=== PATIENT | female | born 1965 ===

== ENCOUNTER 2017-09-16 15:18 | Inpatient (IN) | payer MEDICAID ==
[2017-09-16] MEDS: KETAMINE HCL 500 MG/5 ML VIAL ONE ×2 (08:10→20:00)
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
[2017-09-16] MEDS ORDERED: NS(*) 0.9% 1000 ML BAG 1,000 ML IV ONE ×2 (15:29→18:27)
[2017-09-16] MEDS ORDERED: FOSPHENYTOIN(*) 500 MG/10 ML V 500 MG in NS(*) 0.9% 100 ML BAG 100 ML IVPB ONE (15:30)
[2017-09-16] MEDS ORDERED: ONDANSETRON 4 MG/2 ML VIAL IVP ONE (15:30)
[2017-09-16 16:46] LABS: PLATELET COUNT, AUTOMATED 278 K/uL (150-450)
--- NOTE | 2017-09-16 18:56 | EKG ---
FACILITY: [facility] [place] PATIENT NAME: ROMMEL PEÑA : [id number] MR: [id number] V: [id number] EXAM DATE: ORDERING PHYSICIAN: RO VALLADARES TECHNOLOGIST: YVETTE Test Reason : SEIZURE Blood Pressure : / mmHG Vent. Rate : 083 BPM Atrial Rate : 083 BPM P-R Int : 156 ms QRS Dur : 080 ms QT Int : 354 ms P-R-T Axes : 078 080 080 degrees QTc Int : 415 ms Normal sinus rhythm Nonspecific ST and T wave abnormality Abnormal ECG No previous ECGs available Confirmed by LEBRON SPENCER ([id number]) on 09/17/2017 12:34:55 AM Referred By: BRIDGETTE Confirmed By:LEBRON SPENCER
--- NOTE | 2017-09-16 19:06 | RADIOLOGY IMAGING REPORT ---
FACILITY: [facility] [place] PATIENT NAME: Kym Oates : 1965 MR: [id number] V: [id number] EXAM DATE: ORDERING PHYSICIAN: MELVIN ANGELES TECHNOLOGIST: Location: [facility] Patient: Kym Oates : 1965 Visit/Account:[id number] Date of Sevice: 09/16/2017 EXAMINATION: CT HEAD WITHOUT CONTRAST COMPARISON: None available HISTORY: Seizure. PROCEDURE: Noncontrast CT from the vertex through the skull base. One of the following dose optimizat ion techniques was utilized in the performance of this exam: Automated exposure control; adjustment o f the mA and/or kV according to the patient's size; or use of an iterative reconstruction technique. Specific details can be referenced in the facility's radiology CT exam operational policy. FINDINGS: Brain volume: Age-appropriate volume. Hemorrhage/extra-axial fluid: No intracranial hemorrhage or extra-axial fluid collection. Mass effect/midline shift/edema: None. Ischemia: Minimal chronic appearing white matter change. No acute snell-white differentiation loss. Ventricles and basal cisterns: Ventricle size is within normal limits. Basal cisterns are open. Posterior fossa: Negative. Vessels: Negative. Calvarium, skull base, and scalp: Negative. Visualized sinuses and orbits: Visualized paranasal sinuses are clear. Visualized globes are unremark able. IMPRESSION: 1. No intracranial hemorrhage or mass effect. 2. No CT findings of acute ischemia. Report Dictated By: Karthik Cornell MD at 09/16/2017 6:56 PM Report E-Signed By: Karthik Cornell MD at 09/16/2017 7:03 PM WSN:[id number]
--- NOTE | 2017-09-16 19:09 | RADIOLOGY IMAGING REPORT ---
[place] [facility] [place] NAME: Kym Oates : 1965 MR: [id number] V: [id number] EXAM DATE: ORDERING PHYSICIAN: MELVIN ANGELES TECHNOLOGIST: Location: [facility] [place] Patient: Kym Oates : 1965 Visit/Account:[id number] Date of Sevice: 09/16/2017 Examination: CHEST SINGLE AP Comparison: None. History: Fever. Findings: No consolidation or nodule. No pneumothorax, edema, or effusion. Cardiac and hilar contour size is within normal limits. Osseous structures are intact. IMPRESSION: No evidence of acute cardiopulmonary disease. Report Dictated By: Karthik Cornell MD at 09/16/2017 7:03 PM Report E-Signed By: Karthik Cornell MD at 09/16/2017 7:05 PM WSN:[id number]
[2017-09-16] MEDS ORDERED: LORazepam 2 MG/ML VIAL ONE (19:14)
[2017-09-16] MEDS ORDERED: [UNRECOGNIZED DRUG - OTHER] IVPB ONE (19:25)
[2017-09-16] MEDS ORDERED: FOSPHENYTOIN IVPB ONE (19:25)
[2017-09-16] MEDS ORDERED: NS 0.9% IVPB ONE (19:25)
[2017-09-16] MEDS ORDERED: cefTRIAXone 2 GM VIAL IVP ONE (19:30)
[2017-09-16] MEDS ORDERED: KETAMINE HCL 200 MG/20 ML MDV IVP ONE (19:30)
[2017-09-16] MEDS ORDERED: ACETAMINOPHEN 325 MG SUPP PR ONE (23:30)
[2017-09-16 23:51] VITALS: BP 137/85
[2017-09-17] MEDS ORDERED: INFLUENZA VIRUS VAC 0.5 ML SYR IM ONLY ONE (00:05)
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
[2017-09-17] MEDS: NS(*) 0.9% 1000 ML BAG 1,000 ML IV PRN ×2 (01:03→13:02)
[2017-09-17 03:48] VITALS: BP 129/82
[2017-09-17] MEDS: ACETAMINOPHEN(*)1000 MG/100 ML 100 ML IVPB PRN (03:55)
[2017-09-17 07:10] VITALS: BP 118/73
[2017-09-17 07:42] LABS: PLATELET COUNT, AUTOMATED 251 K/uL (150-450)
[2017-09-17] MEDS: FOSPHENYTOIN IVPB SCH ×2 (09:50→20:33)
[2017-09-17] MEDS: NS 0.9% IVPB SCH ×2 (09:50→20:33)
[2017-09-17] MEDS: [UNRECOGNIZED DRUG - OTHER] IVPB SCH ×2 (09:50→20:33)
[2017-09-17 11:05] VITALS: BP 130/89
[2017-09-17 16:23] VITALS: BP 128/82
[2017-09-17 19:04] VITALS: BP 141/76
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
[2017-09-17] MEDS: cefTRIAXone 2 GM VIAL IVP SCH (22:03)
[2017-09-17 23:14] VITALS: BP 144/86
[2017-09-18 04:15] VITALS: BP 157/85
[2017-09-18] MEDS: ACETAMINOPHEN(*)1000 MG/100 ML 100 ML IVPB PRN (04:20)
[2017-09-18] MEDS: NS(*) 0.9% 1000 ML BAG 1,000 ML IV PRN (04:20)
[2017-09-18 06:30] LABS: PLATELET COUNT, AUTOMATED 258 K/uL (150-450)
[2017-09-18] MEDS ORDERED: KCL (*) 20 MEQ/100 ML PREMIX 100 ML IV SCH (07:10)
[2017-09-18 07:11] VITALS: BP 153/86
[2017-09-18] MEDS: FOSPHENYTOIN IVPB SCH ×2 (09:28→21:17)
[2017-09-18] MEDS: NS 0.9% IVPB SCH ×2 (09:28→21:17)
[2017-09-18] MEDS: [UNRECOGNIZED DRUG - OTHER] IVPB SCH ×2 (09:28→21:17)
[2017-09-18 11:45] VITALS: BP 141/91
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
[2017-09-18] MEDS ORDERED: POTASSIUM CHL 10 MEQ TABCR PO ONE (14:30)
[2017-09-18] MEDS ORDERED: LOPERAMIDE HCL 2 MG CAP PO ONE (14:30)
[2017-09-18] MEDS ORDERED: MAGNESIUM SUL* 2 GM/50 ML IVPB 50 ML IVPB ONE (14:30)
[2017-09-18] MEDS ORDERED: KCL (*) 20 MEQ/100 ML PREMIX 100 ML IV ONE (15:30)
[2017-09-18 15:49] VITALS: BP 153/92
[2017-09-18 19:07] VITALS: BP 164/92
--- NOTE | 2017-09-18 20:03 | RADIOLOGY IMAGING REPORT ---
FACILITY: [facility] PATIENT NAME: ROMMEL CASEY : [id number] MR: [id number] V: [id number] EXAM DATE: ORDERING PHYSICIAN: LEBRON SPENCER TECHNOLOGIST: Narinder Mcclain EXAMINATION:TWO-DIMENSIONAL ECHOCARDIOGRAPH REASON:FEVER AND HEART MURMUR. 2D Measurements (normal values in centimeters) LV endLV endRV endVent.LV PostAorticLeftPercent DiastolicSystolicDiastolicSeptumWallRootAtriumShortening (3.5-5.7)(0.9-2.6)(0.6-1.1)(0.6-1.1)(2.0-3.7)(1.9-4.0)(25-35%) [id number]% STROKE VOLUME: 65 mL ESTIMATED EJECTION FRACTION:74% PARASTERNAL LONG AXIS: Overall left ventricular systolic function is normal. No wall motion abnormalities are noted. Aortic valve and mitral valve both appear to open normally. Color examination of the valves reveals a trace of mitral insufficiency present. Color examination of the aortic valve was unremarkable. PARASTERNAL SHORT AXIS: Overall left ventricular function is normal and chamber sizes are normal. The aortic valve is trileaflet in configuration and appears to open normally. No obvious vegetations are noted. Color examination of the pulmonic valve reveals a trace of pulmonic insufficiency. Color examination of the aortic valve was unremarkable. APICAL FOUR AND TWO CHAMBER: Normal left ventricular ejection fraction and normal chamber sizes. No obvious vegetations are noted in any of the valves. Color examination of the tricuspid valve revealed a trace of tricuspid insufficiency. Color examination of the mitral valve reveals a trace to mild amount of mitral insufficiency present. Aortic valve area and mitral valve area both measure within normal range at 2.7 and 3.1 cm2 respectively. Left atrial volume and right atrial volume measure within normal range at 22.6 and 11.0 ml/m2. Right ventricular function appears to be normal with a TAPSE of 1.9. SUBCOSTAL VIEW: No pericardial effusion was noted. No atrial septal or ventricular septal defects were appreciated. Doppler examination of the mitral valve in diastole is normal. IVC is normal in size. Tricuspid regurgitation V-max is measured at 2.43 m/sec. OVERALL IMPRESSION: 1. Essentially normal 2-dimensional echocardiograph. Normal left ventricular systolic and diastolic function. No wall motion abnormalities are noted. The chamber sizes are also normal. 2. A trace of mitral, tricuspid and pulmonic insufficiency with estimated right ventricular systolic pressure within normal ranges at 27 mmHg which does include an estimated right atrial pressure of 3 mmHg. The aortic valve was trileaflet in configuration and appears to open normally. 3. No obvious vegetations are noted in any of the valves. Dictated by: Stephan Arriola M.D. on 09/17/2017 at 21:07 Transcribed by: KINGS on 09/18/2017 at 14:55 Approved by: Stephan Arriola M.D. on 09/18/2017 at 20:01 [facility]
[2017-09-18] MEDS: ACETAMINOPHEN 325 MG TAB PO PRN (21:05)
[2017-09-18] MEDS: cefTRIAXone 2 GM VIAL IVP SCH (22:27)
[2017-09-18 22:29] VITALS: BP 151/92
[2017-09-19 03:28] VITALS: BP 159/97
[2017-09-19] MEDS: NS(*) 0.9% 1000 ML BAG 1,000 ML IV PRN ×2 (04:29→15:51)
[2017-09-19 07:08] VITALS: BP 162/111
[2017-09-19] MEDS: NS 0.9% IVPB SCH (08:44)
[2017-09-19] MEDS: [UNRECOGNIZED DRUG - OTHER] IVPB SCH (08:44)
[2017-09-19] MEDS: FOSPHENYTOIN IVPB SCH (08:44)
[2017-09-19 10:56] VITALS: BP 156/104
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
[2017-09-19 15:14] VITALS: BP 168/98
[2017-09-19] MEDS: POTASSIUM CHL 10 MEQ TABCR PO SCH (17:10)
[2017-09-19 19:33] VITALS: BP 154/99
[2017-09-19] MEDS: PHENYTOIN ER 100 MG CAPER PO SCH (21:39)
[2017-09-19] MEDS: cefTRIAXone 2 GM VIAL IVP SCH (21:40)
[2017-09-19] MEDS: ACETAMINOPHEN 325 MG TAB PO PRN (22:23)
[2017-09-19 23:19] VITALS: BP 170/100
[2017-09-20] VITALS (10 sets, daily range): BP systolic 147–182; BP diastolic 100–128
[2017-09-20] MEDS: NS(*) 0.9% 1000 ML BAG 1,000 ML IV PRN (02:09)
[2017-09-20] MEDS: LOPERAMIDE HCL 2 MG CAP PO PRN ×4 (02:59→10:52)
[2017-09-20] MEDS: ACETAMINOPHEN 325 MG TAB PO PRN ×4 (04:12→23:29)
[2017-09-20 06:17] LABS: PLATELET COUNT, AUTOMATED 257 K/uL (150-450)
[2017-09-20] MEDS: POTASSIUM CHL 10 MEQ TABCR PO SCH ×2 (08:34→17:24)
[2017-09-20] MEDS: LISINOPRIL 10 MG TAB PO SCH (09:51)
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
[2017-09-20] MEDS ORDERED: PRAMIPEXOLE DIHYDROCHL 0.25 MG PO ONE (15:20)
[2017-09-20] MEDS: CAPSAICIN 60 GM TUBE TP PRN (18:34)
[2017-09-20] MEDS: PHENYTOIN ER 100 MG CAPER PO SCH (20:20)
[2017-09-21 04:18] VITALS: BP 181/129
[2017-09-21 04:20] VITALS: BP 180/110
[2017-09-21] MEDS: ACETAMINOPHEN 325 MG TAB PO PRN ×4 (05:34→23:58)
[2017-09-21] MEDS: LOPERAMIDE HCL 2 MG CAP PO PRN ×2 (06:32→07:23)
[2017-09-21 07:18] VITALS: BP 179/113
[2017-09-21] MEDS: POTASSIUM CHL 10 MEQ TABCR PO SCH ×2 (08:22→17:07)
[2017-09-21] MEDS: LISINOPRIL 10 MG TAB PO SCH (08:22)
[2017-09-21 11:31] VITALS: BP 151/117
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
[2017-09-21 15:00] VITALS: BP 152/92
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
[2017-09-21] MEDS: amLODIPine BESYL(*) 5 MG TAB PO SCH (17:07)
[2017-09-21 19:30] VITALS: BP 155/116
[2017-09-21] MEDS: PHENYTOIN ER 100 MG CAPER PO SCH (20:24)
[2017-09-21] MEDS: GABAPENTIN 100 MG CAP PO SCH (20:24)
[2017-09-22] MEDS: LOPERAMIDE HCL 2 MG CAP PO PRN ×2 (02:43→08:31)
[2017-09-22 02:44] VITALS: BP 158/106
[2017-09-22 07:23] VITALS: BP 155/102
[2017-09-22] MEDS: GABAPENTIN 100 MG CAP PO SCH ×2 (08:23→21:38)
[2017-09-22] MEDS: amLODIPine BESYL(*) 5 MG TAB PO SCH (08:23)
[2017-09-22] MEDS: LISINOPRIL 10 MG TAB PO SCH (08:23)
[2017-09-22] MEDS: ACETAMINOPHEN 325 MG TAB PO PRN ×2 (08:23→21:38)
[2017-09-22] MEDS: POTASSIUM CHL 10 MEQ TABCR PO SCH (08:23)
[2017-09-22 12:24] VITALS: BP 149/97
[2017-09-22] MEDS: traMADol 50 MG TAB PO PRN ×2 (12:29→21:38)
--- NOTE | 2017-09-22 15:36 | Hospitalist Progress Note ---
Subjective Progress Notes Subjective The patient complains of pain. Physical Exam Vital Signs Date Time Temp Pulse Resp B/P (MAP) Pulse Ox O2 Delivery O2 Flow Rate FiO2 09/22/17 12:24 98.5 86 16 149/97 (114) 95 Room Air 09/21/17 14:45 Intake and Output 09/23/17 07:01 Intake Total 120 ml Balance 120 ml Intake Oral 120 ml # Voids 2 # Bowel Movements 1 General Appearance: Alert, Awake, No Acute Distress Neuro: No Gross deficits Eyes: PERRLA Cardiovascular: Regular Rate and Rhythm Respiratory: Clear to Auscultation GI: Soft and Non-Tender Extremities: Warm, Perfused Psych: Appropriate Mood & Affect Result Diagram: 09/20/1752309/20/17523 Assessment and Plan Problems: (1) Grand mal seizure Status: Acute Assessment & Plan: She did have two witnessed seizures in the emergency department. 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 She also takes methadone and Klonopin through a pain clinic and has not been taking either of these for at least several days. This makes either a withdrawal seizure or an underlying seizure disorder as possible etiologies. She supposedly had been off her chronic medications for an extended time frame but did test positive for opiates and cocaine in the ER prior to admission. She admits to using cocaine prior to traveling to [place]. The potential problems with her chronic pain medication and benzodiazepines were discussed. Now that she has been "detoxified", it may be worthwhile to keep her off any of these medications. We will continue the Dilantin. (2) Altered mental status Status: Acute Assessment & Plan: She has not had further seizure and is more alert and awake each day. The person with her reported that her baseline mental status is that of a 11 year old because of previous seizures. We are awaiting a discharge disposition. Today the patient states she has not had previous issue with seizure disorder and agrees her recent seizures were likely due to withdrawal. (3) Fever Status: Acute Assessment & Plan: She presented with a fever and elevated WBC, but no localizing site of infection. A lumbar puncture was performed in the emergency department. The fluid analysis did not appear to be consistent with meningitis and culture is negative. An echocardiogram shows no evidence of vegetations. Blood cultures are negative to date. She was on empiric treatment with ceftriaxone, but this has been discontinued. (4) Hypokalemia Status: Acute Assessment & Plan: This has been improving with potassium supplementation. (5) Diarrhea Status: Acute Assessment & Plan: Possibly secondary to narcotic withdrawal. Stool studies have been negative. (6) Polysubstance abuse Status: Chronic Assessment & Plan: Her urine was positive for cocaine and opiates. She was taking methadone prescribed through a pain clinic, but this was reportedly stolen at least one week ago. Her drug screen in ER was positive for opiates and cocaine however and she now admits to using cocaine prior to traveling to [place]. (7) Lactic acidosis Status: Resolved Assessment & Plan: This may have been secondary to the seizures. (8) HTN (hypertension) Status: Chronic Assessment & Plan: She has been started on lisinopril. (9) Chronic pain Status: Chronic Assessment & Plan: The patient is now complaining of pain. She initially denied pain when questioned until just a few days ago when her mental status improved. She is requesting methadone. Dr. Alegria has recommended keeping her off of opiates and methadone and treating any pain with Tramadol and gabapentin. She does have history of seizure but this now seems to be related to withdrawal. She continues to deny seizure disorder and states the Klonopin was prescribed for RLS. Will try Tramadol and gabapentin. Of note, the patient was monitored for several minutes prior to entering her room and was lying in bed with her hands folded. She did not move and appeared quite comfortable until I entered the room. She then began complaining of pain and writhing. She requested methadone and I explained that we were not going to prescribe methadone as she had been off of it for some time. Time Spent on Plan of Care: < 30 min Exam Sepsis Risk: No Definite Risk Problem Qualifiers (1) Altered mental status: Altered mental status type: disorientation Qualified Codes: R41.0 - Disorientation, unspecified (2) Fever: Fever type: unspecified Qualified Codes: R50.9 - Fever, unspecified KIARA HOUGH MD Sep 22, 2017 15:36
[2017-09-22 15:43] VITALS: BP 149/105
[2017-09-22] MEDS: POTASSIUM CHL PWDR 20 MEQ PKT PO SCH (17:22)
[2017-09-22 19:52] VITALS: BP 147/102
[2017-09-22] MEDS: PHENYTOIN ER 100 MG CAPER PO SCH (21:38)
[2017-09-23 06:21] LABS: PLATELET COUNT, AUTOMATED 332 K/uL (150-450)
[2017-09-23 07:44] VITALS: BP 140/89
[2017-09-23] MEDS: LISINOPRIL 10 MG TAB PO SCH (08:47)
[2017-09-23] MEDS: amLODIPine BESYL(*) 5 MG TAB PO SCH (08:47)
[2017-09-23] MEDS: traMADol 50 MG TAB PO PRN ×3 (08:47→22:27)
[2017-09-23] MEDS: GABAPENTIN 100 MG CAP PO SCH ×2 (08:47→20:56)
--- NOTE | 2017-09-23 09:54 | Hospitalist Progress Note ---
Subjective Progress Notes Subjective She reports soem pain in legs. She appears comfortable when alone in room, but then complains and appears agitated when we enter. Physical Exam Vital Signs Date Time Temp Pulse Resp B/P (MAP) Pulse Ox O2 Delivery O2 Flow Rate FiO2 09/23/17 07:46 Room Air 09/23/17 07:44 98.5 92 16 140/89 (106) 96 09/21/17 14:45 Intake and Output 09/24/17 07:01 Intake Total 0 ml Balance 0 ml Intake Oral 0 ml General Appearance: Alert, Awake Cardiovascular: Regular Rate and Rhythm Respiratory: Clear to Auscultation GI: Soft and Non-Tender Extremities: Warm, Perfused Result Diagram: 09/23/1760909/23/17609 Assessment and Plan Problems: (1) Grand mal seizure Status: Acute Assessment & Plan: She did have two witnessed seizures in the emergency department. 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 She also takes methadone and Klonopin through a pain clinic and has not been taking either of these for at least several days. This makes either a withdrawal seizure or an underlying seizure disorder as possible etiologies. She supposedly had been off her chronic medications for an extended time frame but did test positive for opiates and cocaine in the ER prior to admission. She admits to using cocaine prior to traveling to [place]. The potential problems with her chronic pain medication and benzodiazepines were discussed. Now that she has been "detoxified", it may be worthwhile to keep her off any of these medications. We will continue the Dilantin. (2) Altered mental status Status: Acute Assessment & Plan: She has not had further seizure and is more alert and awake each day. The person with her reported that her baseline mental status is that of a 11 year old because of previous seizures. We are awaiting a discharge disposition. The patient states she has not had previous issue with seizure disorder and agrees her recent seizures were likely due to withdrawal. (3) Fever Status: Acute Assessment & Plan: She presented with a fever and elevated WBC, but no localizing site of infection. A lumbar puncture was performed in the emergency department. The fluid analysis did not appear to be consistent with meningitis and culture is negative. An echocardiogram shows no evidence of vegetations. Blood cultures are negative to date. She was on empiric treatment with ceftriaxone, but this has been discontinued. (4) Hypokalemia Status: Acute Assessment & Plan: This has been improving with potassium supplementation. (5) Diarrhea Status: Acute Assessment & Plan: Possibly secondary to narcotic withdrawal. Stool studies have been negative. (6) Polysubstance abuse Status: Chronic Assessment & Plan: Her urine was positive for cocaine and opiates. She was taking methadone prescribed through a pain clinic, but this was reportedly stolen at least one week ago. Her drug screen in ER was positive for opiates and cocaine. (7) Lactic acidosis Status: Resolved Assessment & Plan: This may have been secondary to the seizures. (8) HTN (hypertension) Status: Chronic Assessment & Plan: She has been started on lisinopril. (9) Chronic pain Status: Chronic Assessment & Plan: The patient is now complaining of pain. She initially denied pain when questioned until just a few days ago when her mental status improved. She is requesting methadone. Dr. Alegria has recommended keeping her off of opiates and methadone and treating any pain with Tramadol and gabapentin. She does have history of seizure, but this now seems to be related to withdrawal. She continues to deny seizure disorder and states the Klonopin was prescribed for RLS. Will continue Tramadol and gabapentin. Of note, the patient was monitored for several minutes prior to entering her room and was lying in bed with her hands folded. She did not move and appeared quite comfortable until we entered the room. She then began complaining of pain and writhing. She has requested methadone and we have explained that we were not going to prescribe methadone. Exam Sepsis Risk: No Definite Risk Problem Qualifiers (1) Altered mental status: Altered mental status type: disorientation Qualified Codes: R41.0 - Disorientation, unspecified (2) Fever: Fever type: unspecified Qualified Codes: R50.9 - Fever, unspecified JAVIER HOUGH MD Sep 23, 2017 09:54
[2017-09-23 11:55] VITALS: BP 134/97
[2017-09-23] MEDS: POTASSIUM CHL PWDR 20 MEQ PKT PO SCH (15:58)
[2017-09-23 19:43] VITALS: BP 133/107
[2017-09-23 19:46] VITALS: BP 137/97
[2017-09-23] MEDS: ACETAMINOPHEN 325 MG TAB PO PRN (19:53)
[2017-09-23] MEDS: PHENYTOIN ER 100 MG CAPER PO SCH (20:56)
[2017-09-24] MEDS: traMADol 50 MG TAB PO PRN ×3 (04:36→17:48)
[2017-09-24 04:37] VITALS: BP 97/85
[2017-09-24 06:14] LABS: PLATELET COUNT, AUTOMATED 368 K/uL (150-450)
[2017-09-24] MEDS: LISINOPRIL 10 MG TAB PO SCH ×2 (08:43→08:57)
[2017-09-24] MEDS: ACETAMINOPHEN 325 MG TAB PO PRN ×3 (08:43→21:45)
[2017-09-24] MEDS: GABAPENTIN 100 MG CAP PO SCH ×2 (08:43→20:19)
[2017-09-24] MEDS: amLODIPine BESYL(*) 5 MG TAB PO SCH (08:44)
[2017-09-24 08:46] VITALS: BP 133/97
--- NOTE | 2017-09-24 08:46 | Medical Nutrition Therapy ---
Nutrition Anthropometrics Weight (Pounds): 109 Weight (Calculated Kilograms): 49.442 Kirk Nutrition Score: Probably Inadequate Kirk Nutrition Risk Score: 18 Dietary Referral Nutrition Risk Factors: Nutrition Risk Comment: Nutritional Diagnosis Nutritional Risk Acuity 2: V/D > 3 Days, Pr Appetite > 3d Nutritional Risk Acuity 3: Substance abuse Past Medical History: Polysubstance abuse, seizures Nutritional Acuity: 2-Moderate Nutrition Diagnosis: Inadequate Food Intake, Altered GI Function Nutrition Etiology: Physiological Causes Nutrition Problem/Etiology/Sym: Poor appetite with diarrhea r/t substance abuse withdrawls per H&P AEB intake 2-25%. Energy Requirement: 1500 (1gm/kg) Protein Requirement: 50 (1gm/kg) Fluid Requirement: 1500 (30ml/kg) Diet Type: Diet as Tolerated ALEX/REG Nutrition Intervention: Cont diet as ordered, Between meal supplement Additional Diet Restrictions: OFFER NUTR SUPPLEMENT Nutrition Monitoring & Eval Nutrition Goals: Eat 75-100% Meal Nutrition Follow-Up: Poor Intake RD Patient Assessment Time: [address] Assessment Type: RD Assessment Patient Nutrition Acuity: 2-Moderate Follow Up Date: Sep 28, 2017 Nutritional Comment: Pt admitted for Grand mal seizure and altered mental state. Wt status unavilable d/t lack of Ht. Low Na+/K+, Total Creat Kinase 225. Receiving ALEX with no reports of intake. Follow for HT, intake, etc. 09/21 Pt cont diarrhia and "not very hungry", per hospitalist note. Intakes averaging from bites to 25% since admission on 09/16. Notable labs include Na 135, K 3.1, and alb 3.3. Will offer nutr supplement. Continue to encourage intake and monitor. 09/24 Pt cont poor intake, rangeing 0-25%. Alb has increased to 4.2. AST elevated at 65, ALT elevated at 77. Will cont to offer nutr supplment to increase kcal and protein intake. BALJINDER NEWSOME Sep 24, 2017 08:46
--- NOTE | 2017-09-24 10:37 | Hospitalist Progress Note ---
Subjective Progress Notes Subjective This patient was admitted for altered mental status and seizures. We continue to await a discharge plan. She had no acute events overnight. Patient Complains of: Cardiovascular: No: Chest Pain Respiratory: No: Shortness of Breath Physical Exam Vital Signs Date Time Temp Pulse Resp B/P (MAP) Pulse Ox O2 Delivery O2 Flow Rate FiO2 09/24/17 08:46 98.4 97 16 133/97 (109) 97 Room Air 09/21/17 14:45 Cardiovascular: Regular Rate and Rhythm Respiratory: Clear to Auscultation Result Diagram: 09/24/17 0602 09/24/17601 Assessment and Plan Problems: (1) Grand mal seizure Status: Acute Assessment & Plan: She did have two witnessed seizures in the emergency department. 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 She also takes methadone and Klonopin through a pain clinic and has not been taking either of these for at least several days. This makes either a withdrawal seizure or an underlying seizure disorder as possible etiologies. She supposedly had been off her chronic medications for an extended time frame but did test positive for opiates and cocaine in the ER prior to admission. She admits to using cocaine prior to traveling to [place]. The potential problems with her chronic pain medication and benzodiazepines were discussed. Now that she has been "detoxified", it may be worthwhile to keep her off any of these medications. We will continue the Dilantin. (2) Altered mental status Status: Acute Assessment & Plan: She has not had further seizure and is more alert and awake each day. The person with her reported that her baseline mental status is that of a 11 year old because of previous seizures. We are awaiting a discharge disposition. The patient states she has not had previous issue with seizure disorder and agrees her recent seizures were likely due to withdrawal. (3) Fever Status: Acute Assessment & Plan: She presented with a fever and elevated WBC, but no localizing site of infection. A lumbar puncture was performed in the emergency department. The fluid analysis did not appear to be consistent with meningitis and culture is negative. An echocardiogram shows no evidence of vegetations. Blood cultures are negative to date. She was on empiric treatment with ceftriaxone, but this has been discontinued. (4) Hypokalemia Status: Acute Assessment & Plan: This has been improving with potassium supplementation. (5) Diarrhea Status: Acute Assessment & Plan: Possibly secondary to narcotic withdrawal. Stool studies have been negative. (6) Polysubstance abuse Status: Chronic Assessment & Plan: Her urine was positive for cocaine and opiates. She was taking methadone prescribed through a pain clinic, but this was reportedly stolen at least one week ago. Her drug screen in ER was positive for opiates and cocaine. (7) Lactic acidosis Status: Resolved Assessment & Plan: This may have been secondary to the seizures. (8) HTN (hypertension) Status: Chronic Assessment & Plan: She has been started on lisinopril. (9) Chronic pain Status: Chronic Assessment & Plan: The patient is now complaining of pain. She initially denied pain when questioned until just a few days ago when her mental status improved. She is requesting methadone. Dr. Alegria has recommended keeping her off of opiates and methadone and treating any pain with Tramadol and gabapentin. She does have history of seizure, but this now seems to be related to withdrawal. She continues to deny seizure disorder and states the Klonopin was prescribed for RLS. Will continue Tramadol and gabapentin. Of note, the patient was monitored for several minutes prior to entering her room and was lying in bed with her hands folded. She did not move and appeared quite comfortable until we entered the room. She then began complaining of pain and writhing. She has requested methadone and we have explained that we were not going to prescribe methadone. Exam Sepsis Risk: No Definite Risk Problem Qualifiers (1) Altered mental status: Altered mental status type: disorientation Qualified Codes: R41.0 - Disorientation, unspecified (2) Fever: Fever type: unspecified Qualified Codes: R50.9 - Fever, unspecified LEBRON SPENCER DO Sep 24, 2017 10:37
[2017-09-24 11:07] VITALS: BP 123/87
[2017-09-24] MEDS ORDERED: MENTHOL/METHYL SALI CREAM 57 GM 57 GM TUBE TP PRN (14:35)
[2017-09-24 15:08] VITALS: BP 119/82
[2017-09-24] MEDS: CAPSAICIN 60 GM TUBE TP PRN (16:28)
[2017-09-24] MEDS: POTASSIUM CHL PWDR 20 MEQ PKT PO SCH (17:47)
[2017-09-24 19:32] VITALS: BP 108/72
[2017-09-24] MEDS: PHENYTOIN ER 100 MG CAPER PO SCH (20:19)
[2017-09-25] MEDS: traMADol 50 MG TAB PO PRN ×3 (00:27→14:32)
[2017-09-25 08:51] VITALS: BP 117/103
[2017-09-25] MEDS: LISINOPRIL 10 MG TAB PO SCH (08:51)
[2017-09-25] MEDS: GABAPENTIN 100 MG CAP PO SCH (08:51)
[2017-09-25] MEDS: amLODIPine BESYL(*) 5 MG TAB PO SCH (08:52)
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
[2017-09-25] MEDS ORDERED: CALCIUM CARBONATE 500 MG CHEW PO PRN (14:15)
[2017-09-25] MEDS: POTASSIUM CHL PWDR 20 MEQ PKT PO SCH (17:04)
== END 2017-09-25 17:56 | DRG 897 ==
LOC: ER 15:23 → MED 23:00
PROVIDERS: ADMIT Family Medicine; ATTEND Family Medicine
PROC: 009U3ZX Drainage of Spinal Canal, Percutaneous Approach, Diagnostic (ICD-10-PCS; principal; 2017-09-16)
DX: F11.23 Opioid dependence with withdrawal (principal); E87.2 Acidosis; G40.409 Other generalized epilepsy and epileptic syndromes, not intractable, without status epilepticus; E87.6 Hypokalemia; T40.3X6A Underdosing of methadone, initial encounter; T42.4X6A Underdosing of benzodiazepines, initial encounter; R50.9 Fever, unspecified; G89.4 Chronic pain syndrome; F02.80 Dementia in other diseases classified elsewhere, unspecified severity, without behavioral disturbance, psychotic disturbance, mood disturbance, and anxiety; F15.10 Other stimulant abuse, uncomplicated; F14.10 Cocaine abuse, uncomplicated; R19.7 Diarrhea, unspecified; I10 Essential (primary) hypertension; G25.81 Restless legs syndrome; Z85.41 Personal history of malignant neoplasm of cervix uteri; Z91.128 Patient's intentional underdosing of medication regimen for other reason; Z88.8 Allergy status to other drugs, medicaments and biological substances
CPT/HCPCS: 36415; 36600; 70450; 71010; 80185; 80305; 81001; 82040; 82140; 82247; 82310; 82374; 82435; 82550; 82565; 82803; 82945; 82947; 83605; 83630; 83735; 83874; 84075; 84132; 84155; 84157; 84295; 84450; 84460; 84520; 85025; 85651; 86140; 87040; 87045; 87070; 87205; 87324; 87449; 87502; 89050; 93005; 93306; 96365; 96366; 96375; 97161; 97165; 99285; 99291; 99292; A4353; J0131; J0696; J2060; J2405; J3475; J3480; J7030; J7050; Q2009

== ENCOUNTER → 2017-09-16 | Outpatient (CLI) | payer MEDICAID | LOC: AMB 14:56 | PROVIDERS: ATTEND Nurse Practitioner | DX: R56.9 Unspecified convulsions (principal); R41.82 Altered mental status, unspecified; E11.9 Type 2 diabetes mellitus without complications | CPT/HCPCS: A0425; A0427 ==

== ENCOUNTER 2017-09-25 17:56 | Inpatient (IN) | payer MEDICAID ==
[~2017-09-25] VITALS: Ht 165.1 cm; Wt 47.6 kg
[2017-09-25] MEDS ORDERED: GABAPENTIN 100 MG CAP PO SCH (18:08)
[2017-09-25] MEDS ORDERED: MENTHOL/METHYL SALI CREAM 57 GM 57 GM TUBE TP PRN (18:08)
[2017-09-25] MEDS ORDERED: LOPERAMIDE HCL 2 MG CAP PO PRN (18:08)
[2017-09-25] MEDS ORDERED: ACETAMINOPHEN 325 MG TAB PO PRN (18:08)
[2017-09-25] MEDS ORDERED: CALCIUM CARBONATE 500 MG CHEW CHEW PRN (18:25)
[2017-09-25] MEDS ORDERED: traMADol 50 MG TAB PO PRN (18:25)
[2017-09-25 21:27] VITALS: BP 129/85
[2017-09-25] MEDS: QUEtiapine FUM 25 MG TAB PO SCH (21:36)
[2017-09-25] MEDS: GABAPENTIN 300 MG CAP PO SCH (21:37)
[2017-09-25] MEDS: PHENYTOIN ER 100 MG CAPER PO SCH (21:37)
[2017-09-25] MEDS: PANTOPRAZOLE SOD 40 MG TABEC PO SCH (21:37)
[2017-09-26 06:06] VITALS: BP 117/83
[2017-09-26] MEDS: MAG HYD/AL HYD/SIMETH 30ML UDC PO PRN ×2 (07:54→18:01)
[2017-09-26] MEDS: CHOLECALCIFEROL 1000 UNIT TAB PO SCH (07:55)
[2017-09-26] MEDS: LISINOPRIL 20 MG TAB PO SCH (07:55)
[2017-09-26] MEDS: MULTIVITAMINS PO SCH (07:55)
[2017-09-26] MEDS: PANTOPRAZOLE SOD 40 MG TABEC PO SCH (07:55)
[2017-09-26] MEDS: THIAMINE HCL 100 MG TAB PO SCH (07:55)
[2017-09-26] MEDS: FOLIC ACID 1 MG TAB PO SCH (07:55)
[2017-09-26] MEDS: GABAPENTIN 300 MG CAP PO SCH ×3 (07:55→21:05)
[2017-09-26] MEDS: OMEGA-3 500 MG CAP PO SCH (07:57)
[2017-09-26 09:19] VITALS: BP 142/94
[2017-09-26] MEDS ORDERED: NICOTINE CARTRIDGE 1 EA PO PRN (11:05)
[2017-09-26] MEDS: NICOTINE 7 MG/24 HR PATCH TD SCH (14:08)
[2017-09-26 14:55] VITALS: BP 82/65
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
[2017-09-26] MEDS: QUEtiapine FUM 25 MG TAB PO SCH (21:05)
[2017-09-26] MEDS: PHENYTOIN ER 100 MG CAPER PO SCH (21:05)
[2017-09-27 05:44] VITALS: BP 136/94
[2017-09-27] MEDS: MAG HYD/AL HYD/SIMETH 30ML UDC PO PRN ×3 (05:46→20:10)
[2017-09-27 07:54] LABS: PLATELET COUNT, AUTOMATED 383 K/uL (150-450)
[2017-09-27] MEDS: OMEGA-3 500 MG CAP PO SCH (08:43)
[2017-09-27] MEDS: CHOLECALCIFEROL 1000 UNIT TAB PO SCH (08:43)
[2017-09-27] MEDS: GABAPENTIN 300 MG CAP PO SCH ×3 (08:43→20:37)
[2017-09-27] MEDS: FOLIC ACID 1 MG TAB PO SCH (08:43)
[2017-09-27] MEDS: PANTOPRAZOLE SOD 40 MG TABEC PO SCH (08:43)
[2017-09-27 08:44] VITALS: BP 121/75
[2017-09-27] MEDS: LISINOPRIL 20 MG TAB PO SCH (08:44)
[2017-09-27] MEDS: MULTIVITAMINS PO SCH (08:44)
[2017-09-27] MEDS: THIAMINE HCL 100 MG TAB PO SCH (08:44)
[2017-09-27] MEDS: NICOTINE 7 MG/24 HR PATCH TD SCH (08:46)
--- NOTE | 2017-09-27 11:50 | BHS Progress Note ---
BHS - Subjective Progress Notes Subjective Patient remains overall cooperative on the unit. Vague, sporadic complaints of pain, or other conditions, such as "acid reflux" continue in this patient who likely suffers from powerful addictive behaviors. Patient is taking an active role in her treatment, and continues to await her discharge into care of significant other toward the end of the week. No other complaints. Will continue current medication regimen. Suicidal Ideation: None Homicidal Ideation: None BHS - Objective Physical Exam Vital Signs Vital Signs Date Time Temp Pulse Resp B/P (MAP) Pulse Ox O2 Delivery O2 Flow Rate FiO2 09/27/17 08:44 98.1 124 121/75 (90) 96 Room Air 09/27/17 05:44 15 Hematology Test 09/27/17 07:11 Red Blood Count 4.77 M/uL (4.17-5.56) Mean Corpuscular Volume 88.9 fL (80.0-96.0) Mean Corpuscular Hemoglobin 30.6 pg (26.0-33.0) Mean Corpuscular Hemoglobin Concent 34.5 g/dL (32.0-36.0) Red Cell Distribution Width 14.3 % (11.5-14.5) Mean Platelet Volume 9.6 fL (7.2-11.1) Neutrophils (%) (Auto) 64.9 % (39.4-72.5) Lymphocytes (%) (Auto) 24.1 % (17.6-49.6) Monocytes (%) (Auto) 7.0 % (4.1-12.4) Eosinophils (%) (Auto) 1.4 % (0.4-6.7) Basophils (%) (Auto) 2.6 % (0.3-1.4) Nucleated RBC Relative Count (auto) 0.1 /100WBC Neutrophils # (Auto) 7.4 K/uL (2.0-7.4) Lymphocytes # (Auto) 2.7 K/uL (1.3-3.6) Monocytes # (Auto) 0.8 K/uL (0.3-1.0) Eosinophils # (Auto) 0.2 K/uL (0.0-0.5) Basophils # (Auto) 0.3 K/uL (0.0-0.1) Nucleated RBC Absolute Count (auto) 0.01 K/uL Sodium Level 138 mmol/L (137-145) Potassium Level 4.6 mmol/L (3.5-5.0) Chloride Level 103 mmol/L (98-107) Carbon Dioxide Level 26 mmol/L (22-31) Blood Urea Nitrogen 23 mg/dl (7-18) Creatinine 0.90 mg/dl (0.52-1.04) Glomerular Filtration Rate Calc > 60.0 Random Glucose 86 mg/dl (75-110) Calcium Level 9.8 mg/dl (8.4-10.2) Total Bilirubin 0.4 mg/dl (0.2-1.3) Aspartate Amino Transf (AST/SGOT) 182 U/L (0-35) Alanine Aminotransferase (ALT/SGPT) 264 U/L (0-56) Alkaline Phosphatase 64 U/L (0-126) Total Protein 6.9 gm/dl (6.3-8.2) Albumin 3.5 g/dl (3.5-5.0) Chemistry Test 09/27/17 07:11 White Blood Count 11.4 k/uL (4.5-11.0) Red Blood Count 4.77 M/uL (4.17-5.56) Hemoglobin 14.6 g/dL (12.0-16.0) Hematocrit 42.4 % (34.0-47.0) Mean Corpuscular Volume 88.9 fL (80.0-96.0) Mean Corpuscular Hemoglobin 30.6 pg (26.0-33.0) Mean Corpuscular Hemoglobin Concent 34.5 g/dL (32.0-36.0) Red Cell Distribution Width 14.3 % (11.5-14.5) Platelet Count 383 K/uL (150-450) Mean Platelet Volume 9.6 fL (7.2-11.1) Neutrophils (%) (Auto) 64.9 % (39.4-72.5) Lymphocytes (%) (Auto) 24.1 % (17.6-49.6) Monocytes (%) (Auto) 7.0 % (4.1-12.4) Eosinophils (%) (Auto) 1.4 % (0.4-6.7) Basophils (%) (Auto) 2.6 % (0.3-1.4) Nucleated RBC Relative Count (auto) 0.1 /100WBC Neutrophils # (Auto) 7.4 K/uL (2.0-7.4) Lymphocytes # (Auto) 2.7 K/uL (1.3-3.6) Monocytes # (Auto) 0.8 K/uL (0.3-1.0) Eosinophils # (Auto) 0.2 K/uL (0.0-0.5) Basophils # (Auto) 0.3 K/uL (0.0-0.1) Nucleated RBC Absolute Count (auto) 0.01 K/uL Glomerular Filtration Rate Calc > 60.0 Calcium Level 9.8 mg/dl (8.4-10.2) Total Bilirubin 0.4 mg/dl (0.2-1.3) Aspartate Amino Transf (AST/SGOT) 182 U/L (0-35) Alanine Aminotransferase (ALT/SGPT) 264 U/L (0-56) Alkaline Phosphatase 64 U/L (0-126) Total Protein 6.9 gm/dl (6.3-8.2) Albumin 3.5 g/dl (3.5-5.0) Hematology Test 09/27/17 07:11 Red Blood Count 4.77 M/uL (4.17-5.56) Mean Corpuscular Volume 88.9 fL (80.0-96.0) Mean Corpuscular Hemoglobin 30.6 pg (26.0-33.0) Mean Corpuscular Hemoglobin Concent 34.5 g/dL (32.0-36.0) Red Cell Distribution Width 14.3 % (11.5-14.5) Mean Platelet Volume 9.6 fL (7.2-11.1) Neutrophils (%) (Auto) 64.9 % (39.4-72.5) Lymphocytes (%) (Auto) 24.1 % (17.6-49.6) Monocytes (%) (Auto) 7.0 % (4.1-12.4) Eosinophils (%) (Auto) 1.4 % (0.4-6.7) Basophils (%) (Auto) 2.6 % (0.3-1.4) Nucleated RBC Relative Count (auto) 0.1 /100WBC Neutrophils # (Auto) 7.4 K/uL (2.0-7.4) Lymphocytes # (Auto) 2.7 K/uL (1.3-3.6) Monocytes # (Auto) 0.8 K/uL (0.3-1.0) Eosinophils # (Auto) 0.2 K/uL (0.0-0.5) Basophils # (Auto) 0.3 K/uL (0.0-0.1) Nucleated RBC Absolute Count (auto) 0.01 K/uL Sodium Level 138 mmol/L (137-145) Potassium Level 4.6 mmol/L (3.5-5.0) Chloride Level 103 mmol/L (98-107) Carbon Dioxide Level 26 mmol/L (22-31) Blood Urea Nitrogen 23 mg/dl (7-18) Creatinine 0.90 mg/dl (0.52-1.04) Glomerular Filtration Rate Calc > 60.0 Random Glucose 86 mg/dl (75-110) Calcium Level 9.8 mg/dl (8.4-10.2) Total Bilirubin 0.4 mg/dl (0.2-1.3) Aspartate Amino Transf (AST/SGOT) 182 U/L (0-35) Alanine Aminotransferase (ALT/SGPT) 264 U/L (0-56) Alkaline Phosphatase 64 U/L (0-126) Total Protein 6.9 gm/dl (6.3-8.2) Albumin 3.5 g/dl (3.5-5.0) Chemistry Test 09/27/17 07:11 White Blood Count 11.4 k/uL (4.5-11.0) Red Blood Count 4.77 M/uL (4.17-5.56) Hemoglobin 14.6 g/dL (12.0-16.0) Hematocrit 42.4 % (34.0-47.0) Mean Corpuscular Volume 88.9 fL (80.0-96.0) Mean Corpuscular Hemoglobin 30.6 pg (26.0-33.0) Mean Corpuscular Hemoglobin Concent 34.5 g/dL (32.0-36.0) Red Cell Distribution Width 14.3 % (11.5-14.5) Platelet Count 383 K/uL (150-450) Mean Platelet Volume 9.6 fL (7.2-11.1) Neutrophils (%) (Auto) 64.9 % (39.4-72.5) Lymphocytes (%) (Auto) 24.1 % (17.6-49.6) Monocytes (%) (Auto) 7.0 % (4.1-12.4) Eosinophils (%) (Auto) 1.4 % (0.4-6.7) Basophils (%) (Auto) 2.6 % (0.3-1.4) Nucleated RBC Relative Count (auto) 0.1 /100WBC Neutrophils # (Auto) 7.4 K/uL (2.0-7.4) Lymphocytes # (Auto) 2.7 K/uL (1.3-3.6) Monocytes # (Auto) 0.8 K/uL (0.3-1.0) Eosinophils # (Auto) 0.2 K/uL (0.0-0.5) Basophils # (Auto) 0.3 K/uL (0.0-0.1) Nucleated RBC Absolute Count (auto) 0.01 K/uL Glomerular Filtration Rate Calc > 60.0 Calcium Level 9.8 mg/dl (8.4-10.2) Total Bilirubin 0.4 mg/dl (0.2-1.3) Aspartate Amino Transf (AST/SGOT) 182 U/L (0-35) Alanine Aminotransferase (ALT/SGPT) 264 U/L (0-56) Alkaline Phosphatase 64 U/L (0-126) Total Protein 6.9 gm/dl (6.3-8.2) Albumin 3.5 g/dl (3.5-5.0) Muscle Strength and Tone: Other Gait and Station: Steady (some generalized weakness at times) [facility] Medications Reviewed: Side Effects, Benefits of Medication, Risks Allergies Reviewed: Yes Mental Status Exam General Appearance: Casual, Well Groomed, Good Eye Contact, Cooperative, Polite , Good Interaction, No Unkept, No Tearful, No Psychomotor Agitation, No Psychomotor Retardation, No Bizarre Mannerisms, No Tics Speech: Clear, Spontaneous, Normal Rate, Normal Rhythm, No Normal Volume, Normal Tone Mood: Euthymic Affect: Full and Appropriate, Calm, No Withdrawn, No Tearful Thought Process: Organized, Logical, Goal Directed, No Loose Associations, No Flight of Ideas Thought Content: No Suicidal Ideation, No Homicidal Ideation, No Delusions, No Auditory Halllucinations, No Visual Hallucinations, No Thought Broadcasting, No Ideas of Reference, No Obsessions, No Compulsions Sensorium: Clear Cognition: Alert & Oriented-Person, Alert & Oriented-Place, Alert & Oriented- Time, Tebye-Tnnzvbsg-Bdfquydfg Memory: Immediate, Recent, Remote Intelligence: Average Insight Judgment: Poor (likely addictive behaviors are very strong, patient cognition continues to improve. ) Result Diagram: 09/27/17 0711 09/27/17 0711 [facility] Assessment and Plan Vuyf-[id number] Encounter Date: Sep 27, 2017 [id number] Encounter Time: 11:15 [facility] Plan: Necessary Precautions, Individual/Group Therapy, Admin/Titrate Meds, Educate Patient Problems: (1) Substance-induced disorder Assessment & Plan: cognition continues to improve. (2) Stimulant use disorder Status: Chronic Assessment & Plan: likely present and chronic, patient denies. (3) Opiate dependence Status: Chronic Assessment & Plan: likely present and chronic, patient denies. Condition 1. continue treatment, and education. 2. await arrival of significant other and subsequent discharge. Problem Qualifiers (1) Opiate dependence: Substance use status: with other opioid-induced disorder Qualified Codes: F11.288 - Opioid dependence with other opioid-induced disorder ISABEL MENDIOLA MD Sep 27, 2017 11:49
--- NOTE | 2017-09-27 13:42 | Miscellaneous Provider Note ---
Miscellaneous Provider Note Note Reviewed lab work. She has had persistently elevated WBC count, which is improved on today's labs. Her AST and ALT are modestly elevated today. She has had slight elevation in the past. She is on a couple of medications that could lead to the increase (Dilantin, Neurontin, acetaminophen). At this time, would not make any specific changes (other than DC acetaminophen), but would re-check labs tomorrow to see if continuing to rise. If so, would need to consider changing her regimen. JAVIER HOUGH MD Sep 27, 2017 13:42
[2017-09-27] MEDS: QUEtiapine FUM 25 MG TAB PO SCH (20:37)
[2017-09-27] MEDS: PHENYTOIN ER 100 MG CAPER PO SCH (20:37)
[2017-09-27 21:18] VITALS: BP 125/94
[2017-09-28] MEDS ORDERED: QUEtiapine FUM 25 MG TAB PO SCH
[2017-09-28] MEDS ORDERED: LISINOPRIL 20 MG TAB PO SCH
[2017-09-28] MEDS ORDERED: PHENYTOIN ER 100 MG CAPER PO SCH ×2
[2017-09-28] MEDS ORDERED: GABAPENTIN 300 MG CAP PO SCH
[2017-09-28 06:26] VITALS: BP 132/89
[2017-09-28 07:05] LABS: PLATELET COUNT, AUTOMATED 403 K/uL (150-450)
[2017-09-28] MEDS ORDERED: FLUCONAZOLE 150 MG TAB PO ONE (09:00)
[2017-09-28] MEDS: NICOTINE 7 MG/24 HR PATCH TD SCH (09:00)
[2017-09-28] MEDS: OMEGA-3 500 MG CAP PO SCH (09:08)
[2017-09-28] MEDS: CHOLECALCIFEROL 1000 UNIT TAB PO SCH (09:08)
[2017-09-28] MEDS: LISINOPRIL 20 MG TAB PO SCH (09:08)
[2017-09-28] MEDS: MULTIVITAMINS PO SCH (09:08)
[2017-09-28] MEDS: GABAPENTIN 300 MG CAP PO SCH ×3 (09:08→21:01)
[2017-09-28] MEDS: FOLIC ACID 1 MG TAB PO SCH (09:08)
[2017-09-28] MEDS: PANTOPRAZOLE SOD 40 MG TABEC PO SCH (09:08)
[2017-09-28] MEDS: THIAMINE HCL 100 MG TAB PO SCH (09:08)
[2017-09-28] MEDS: MAG HYD/AL HYD/SIMETH 30ML UDC PO PRN ×2 (09:10→14:23)
[2017-09-28 13:00] VITALS: BP 128/95
[2017-09-28] MEDS ORDERED: MENT113G6 TP (13:20)
[2017-09-28] MEDS ORDERED: MULT-1379 PO (13:21)
--- NOTE | 2017-09-28 13:21 | BHS Progress Note ---
BHS - Subjective Progress Notes Subjective Patient remaining calm and cooperative on the unit today, with some symptom promotion type behavior. Will arrange discharge plans today, and patient will discharge into care of adult friend in AM, for travel to [place]. Patient was given single dose of Diflucan today 150mg. Patient denies any other concerns. Suicidal Ideation: None Homicidal Ideation: None BHS - Objective Physical Exam Vital Signs Vital Signs Date Time Temp Pulse Resp B/P (MAP) Pulse Ox O2 Delivery O2 Flow Rate FiO2 09/28/17 06:26 99.3 89 132/89 (103) 95 Room Air 09/27/17 05:44 15 Hematology Test 09/28/17 06:53 Red Blood Count 4.52 M/uL (4.17-5.56) Mean Corpuscular Volume 89.7 fL (80.0-96.0) Mean Corpuscular Hemoglobin 30.0 pg (26.0-33.0) Mean Corpuscular Hemoglobin Concent 33.4 g/dL (32.0-36.0) Red Cell Distribution Width 14.2 % (11.5-14.5) Mean Platelet Volume 8.7 fL (7.2-11.1) Neutrophils (%) (Auto) 65.3 % (39.4-72.5) Lymphocytes (%) (Auto) 23.2 % (17.6-49.6) Monocytes (%) (Auto) 8.9 % (4.1-12.4) Eosinophils (%) (Auto) 1.3 % (0.4-6.7) Basophils (%) (Auto) 1.3 % (0.3-1.4) Nucleated RBC Relative Count (auto) 0.0 /100WBC Neutrophils # (Auto) 8.2 K/uL (2.0-7.4) Lymphocytes # (Auto) 2.9 K/uL (1.3-3.6) Monocytes # (Auto) 1.1 K/uL (0.3-1.0) Eosinophils # (Auto) 0.2 K/uL (0.0-0.5) Basophils # (Auto) 0.2 K/uL (0.0-0.1) Nucleated RBC Absolute Count (auto) 0.01 K/uL Sodium Level 137 mmol/L (137-145) Potassium Level 4.4 mmol/L (3.5-5.0) Chloride Level 103 mmol/L (98-107) Carbon Dioxide Level 25 mmol/L (22-31) Blood Urea Nitrogen 21 mg/dl (7-18) Creatinine 0.90 mg/dl (0.52-1.04) Glomerular Filtration Rate Calc > 60.0 Random Glucose 78 mg/dl (75-110) Calcium Level 9.3 mg/dl (8.4-10.2) Total Bilirubin 0.3 mg/dl (0.2-1.3) Aspartate Amino Transf (AST/SGOT) 88 U/L (0-35) Alanine Aminotransferase (ALT/SGPT) 202 U/L (0-56) Alkaline Phosphatase 62 U/L (0-126) Total Protein 6.6 gm/dl (6.3-8.2) Albumin 3.5 g/dl (3.5-5.0) Chemistry Test 09/28/17 06:53 White Blood Count 12.6 k/uL (4.5-11.0) Red Blood Count 4.52 M/uL (4.17-5.56) Hemoglobin 13.5 g/dL (12.0-16.0) Hematocrit 40.5 % (34.0-47.0) Mean Corpuscular Volume 89.7 fL (80.0-96.0) Mean Corpuscular Hemoglobin 30.0 pg (26.0-33.0) Mean Corpuscular Hemoglobin Concent 33.4 g/dL (32.0-36.0) Red Cell Distribution Width 14.2 % (11.5-14.5) Platelet Count 403 K/uL (150-450) Mean Platelet Volume 8.7 fL (7.2-11.1) Neutrophils (%) (Auto) 65.3 % (39.4-72.5) Lymphocytes (%) (Auto) 23.2 % (17.6-49.6) Monocytes (%) (Auto) 8.9 % (4.1-12.4) Eosinophils (%) (Auto) 1.3 % (0.4-6.7) Basophils (%) (Auto) 1.3 % (0.3-1.4) Nucleated RBC Relative Count (auto) 0.0 /100WBC Neutrophils # (Auto) 8.2 K/uL (2.0-7.4) Lymphocytes # (Auto) 2.9 K/uL (1.3-3.6) Monocytes # (Auto) 1.1 K/uL (0.3-1.0) Eosinophils # (Auto) 0.2 K/uL (0.0-0.5) Basophils # (Auto) 0.2 K/uL (0.0-0.1) Nucleated RBC Absolute Count (auto) 0.01 K/uL Glomerular Filtration Rate Calc > 60.0 Calcium Level 9.3 mg/dl (8.4-10.2) Total Bilirubin 0.3 mg/dl (0.2-1.3) Aspartate Amino Transf (AST/SGOT) 88 U/L (0-35) Alanine Aminotransferase (ALT/SGPT) 202 U/L (0-56) Alkaline Phosphatase 62 U/L (0-126) Total Protein 6.6 gm/dl (6.3-8.2) Albumin 3.5 g/dl (3.5-5.0) Muscle Strength and Tone: WNL Gait and Station: Steady [facility] Medications Reviewed: Side Effects, Benefits of Medication, Risks Allergies Reviewed: Yes Mental Status Exam General Appearance: Casual, Well Groomed, Good Eye Contact, Cooperative, Polite , Good Interaction, No Unkept, No Tearful, No Bizarre Mannerisms, No Tics Speech: Clear, Spontaneous, Normal Rate, Normal Rhythm, Normal Volume, Normal Tone Mood: Euthymic Affect: Full and Appropriate, Calm Thought Process: Organized, Logical, Goal Directed, No Loose Associations, No Flight of Ideas Thought Content: No Suicidal Ideation, No Homicidal Ideation, No Delusions, No Auditory Halllucinations, No Visual Hallucinations, No Thought Broadcasting, No Ideas of Reference, No Obsessions, No Compulsions Sensorium: Clear Cognition: Alert & Oriented-Person, Alert & Oriented-Place, Alert & Oriented- Time, Uebtq-Zleniaep-Cwxqvhlnp Memory: Immediate, Recent, Remote Intelligence: Average Insight Judgment: Poor (maladaptive stress coping mechanisms exist in babar patient who likely has a very lengthy substance abuse history. ) Result Diagram: 09/28/17 0653 09/28/17 0653 [facility] Assessment and Plan [id number] Encounter Date: Sep 28, 2017 [id number] Encounter Time: 11:30 [facility] Plan: Necessary Precautions, Individual/Group Therapy, Admin/Titrate Meds, Educate Patient Problems: (1) Substance-induced disorder Assessment & Plan: cognition continues to improve. (2) Stimulant use disorder Status: Chronic Assessment & Plan: likely present and chronic, patient denies. (3) Opiate dependence Status: Chronic Assessment & Plan: likely present and chronic, patient denies. Condition 1. arrange discharge today for early tomorrow. 2. diflucan 150mg times one, continue other medications. Problem Qualifiers (1) Opiate dependence: Substance use status: with other opioid-induced disorder Qualified Codes: F11.288 - Opioid dependence with other opioid-induced disorder ISABEL MENDIOLA MD Sep 28, 2017 13:21
[2017-09-28] MEDS ORDERED: THIA100T2 PO (13:23)
[2017-09-28] MEDS ORDERED: CHOL100059 PO (13:23)
[2017-09-28] MEDS ORDERED: FOLI-68 PO (13:24)
[2017-09-28] MEDS ORDERED: PANT40TA65 PO (13:24)
[2017-09-28] MEDS ORDERED: LISI20TA29 PO (13:25)
[2017-09-28] MEDS ORDERED: GABA-490 PO (13:26)
[2017-09-28] MEDS ORDERED: PHEN100C82 PO (13:26)
[2017-09-28] MEDS ORDERED: QUET50TA21 PO (13:27)
[2017-09-28] MEDS ORDERED: OMEG-23 PO (13:28)
[2017-09-28] MEDS ORDERED: FAMO1TAB59 PO (13:37)
[2017-09-28] MEDS: PHENYTOIN ER 100 MG CAPER PO SCH (21:01)
[2017-09-28] MEDS: QUEtiapine FUM 25 MG TAB PO SCH (21:01)
[2017-09-29 00:30] VITALS: BP 138/88
[2017-09-29 08:15] VITALS: BP 118/95
[2017-09-29] MEDS: CHOLECALCIFEROL 1000 UNIT TAB PO SCH (08:36)
[2017-09-29] MEDS: THIAMINE HCL 100 MG TAB PO SCH (08:36)
[2017-09-29] MEDS: LISINOPRIL 20 MG TAB PO SCH (08:36)
[2017-09-29] MEDS: MULTIVITAMINS PO SCH (08:36)
[2017-09-29] MEDS: PANTOPRAZOLE SOD 40 MG TABEC PO SCH (08:36)
[2017-09-29] MEDS: GABAPENTIN 300 MG CAP PO SCH (08:36)
[2017-09-29] MEDS: FOLIC ACID 1 MG TAB PO SCH (08:36)
[2017-09-29] MEDS: OMEGA-3 500 MG CAP PO SCH (08:36)
--- NOTE | 2017-10-02 06:30 | SCHAAF DISCHARGE ---
DATE OF ADMISSION: September 25, 2017 DATE OF DISCHARGE: September 29, 2017 ATTENDING PHYSICIAN Prince Diaz MD FINAL DIAGNOSES PER DSM-V Stimulant use disorder, cocaine. Opiate use disorder, both likely severe. Substance-induced disorder, other, including altered mental status which had largely resolved at time of discharge. Patient having supportive adult friend. REASON FOR ADMISSION This discharge note was for a patient visit on September 28, 2017. Patient was seen at approximately 0930 in the morning in preparation for discharge early the following morning on September 29, 2017. This is an overall pleasant, cooperative 51-year-old female who throughout her stay continued to display mild drug-seeking behaviors. Patient seemingly attempting to promote symptomatology of almost any kind. Patient likely suffering from significant long-standing drug abuse of various kinds. Patient was calm and cooperative, did taken an active role in her treatment. Please see electronic medical records. Patient was initially admitted in a state of altered mental status following what appears to be seizure with positive opiate and cocaine screen. Patient remained on the medical floor from September 16, 2017 to September 25, 2017. During that time frame, patient's adult friend had to return to [place]. Patient was deemed unable to follow through with travel arrangements on her own. The patient was subsequently transferred to [facility] to await return by responsible constitution party to accompany patient to new living arrangement in [place]. Again, please see H&P for full details. Patient's mentation continued to improve. Patient's various ailments were often seen to be much less in severity than patient would report. PHYSICAL EXAMINATION Please see emergency room note, medical floor notes. This is a thin 51-year- old female, initially in a state of altered mental status and likely postictal state. Patient confused upon arrival in the [facility] unit. Patient in no acute medical distress. Vital signs at the time of admission to [facility]: Temperature 98.7, pulse 88, respiratory rate 15, blood pressure 129/85 and pulse oximetry 93% on room air. At the time of discharge: Temperature 98.2, pulse 117, respiratory rate 14, blood pressure 118/95, pulse oximetry 96% on room air. LABORATORY DATA On September 28, 2017, CBC unremarkable. CMP on September 28, 2017 indicated AST of 88 with an ALT of 202, otherwise unremarkable. Hepatic enzymes were continuing to fall. Urinalysis unremarkable. Toxicology screen upon admission positive for opiates, positive for cocaine. Please see medical record for other laboratory data. MENTAL STATUS EXAMINATION GENERAL APPEARANCE, BEHAVIOR AND ATTITUDE: At time of discharge, this is an overall pleasant, cooperative 51-year-old female smiling broadly, interacting well. No periods of tearfulness. Patient continued to promote symptomatology at times of various nature. SPEECH: Considered within normal limits at time of discharge. MOOD: Stated "good". AFFECT: Variable. THOUGHT PROCESSES: Appeared goal-directed. Patient intending to go to [place]. Logical. No loose associations or flight of ideas. THOUGHT CONTENT: Free of auditory or visual hallucinations, ideas of reference , thought broadcastings, delusions, obsessions or compulsions. Patient adamantly denying suicidal or homicidal ideation. SENSORIUM: Clear. COGNITION: Alert and oriented to person, place, time and situation. MEMORY: Immediate, recent and remote estimated intact. INTELLIGENCE: Historically average, based on history. INSIGHT AND JUDGMENT: Likely considered impaired in some ways due to continued predisposition to seek medications for various causes, and including illicit substance use. However, patient deemed stable to travel with adult responsible constitution party. RESULTS OF TESTING Imaging: Please see electronic record. Laboratory data: See above. CONSULTATIONS None. TREATMENT Patient received medications, participated in individual and group therapy. HOSPITAL COURSE Patient again was admitted after being medically cleared on medical floor. Patient's detox from all substances was considered complete. Patient did take a somewhat active role in her treatment. CONDITION OF PATIENT ON DISCHARGE Stable. Considered a minimal risk to herself or others, appropriate for outpatient care. DISPOSITION The patient was discharged to the care of adult friend early in the morning of September 29, 2017 to accompany her in travel to [place]. Copy of all imaging , lab work was given to patient to resume care in [place]. Patient was to abstain from addictive substances, and patient would follow up with continued outpatient primary care provider appointments there, including further evaluation of persistent elevated white blood cell count. Follow up with mental health as well. DISCHARGE MEDICATIONS 1. Patient would continue Dilantin 200 mg at bedtime. 2. Fish oil 1000 mg daily. 3. Folic acid 1 mg daily. 4. Neurontin 300 mg 3 times a day. 5. Prinivil 20 mg daily. 6. Protonix 40 mg daily. 7. Seroquel 50 mg q.h.s. 8. Multivitamin with minerals daily. 9. Vitamin B1 100 mg daily. 10. Vitamin D3 1000 International Units daily. 11. Patient could use [place] as necessary. DISCHARGE INSTRUCTIONS Patient was encouraged to continue to avoid smoking, and she could use Tums as necessary for acid reflux. Risks, benefits and alternatives of the above discharge plan were discussed. Informed consent was given to proceed with the above discharge plan by this patient and responsible constitution party traveling with patient after departure from the unit. SOFIA
== END 2017-09-29 09:30 | disposition home or self-care (01) | DRG 897 ==
LOC: BHS 17:56
PROVIDERS: ADMIT Psychiatry & Neurology Psychiatry; ATTEND Psychiatry & Neurology Psychiatry
DX: F11.288 Opioid dependence with other opioid-induced disorder (principal); F14.20 Cocaine dependence, uncomplicated; I10 Essential (primary) hypertension; J45.909 Unspecified asthma, uncomplicated; K21.9 Gastro-esophageal reflux disease without esophagitis; F17.210 Nicotine dependence, cigarettes, uncomplicated; Z76.5 Malingerer [conscious simulation]; Z88.8 Allergy status to other drugs, medicaments and biological substances; Z85.3 Personal history of malignant neoplasm of breast; Z85.43 Personal history of malignant neoplasm of ovary; Z86.73 Personal history of transient ischemic attack (TIA), and cerebral infarction without residual deficits
CPT/HCPCS: 36415; 36600; 70450; 71010; 80185; 80305; 81001; 82040; 82140; 82247; 82310; 82374; 82435; 82550; 82565; 82803; 82945; 82947; 83605; 83630; 83735; 83874; 84075; 84132; 84155; 84157; 84295; 84450; 84460; 84520; 85025; 85651; 86140; 87040; 87045; 87070; 87205; 87324; 87449; 87502; 89050; 90853; 93005; 93306; 96365; 96366; 96375; 97161; 97165; 99291; 99292; A4353; J0131; J0696; J2060; J2405; J3475; J3480; J7030; J7050; Q2009